=== PATIENT | female | born 1975 | race Caucasian/White ===

== ENCOUNTER 2016-11-23 14:30 | Inpatient (IN) | payer BC, OTHER ==
[~2016-11-23] VITALS: Ht 170.2 cm; Wt 76.4 kg
[~2016-11-23 14:30] MED LIST: BUSP10TA2 PO; HYDR-3025 PO
[2016-11-28] VITALS (23 sets, daily range): BP systolic 99–133; BP diastolic 58–76; PULSE 64–78; RESP 16–19; Ht 170.2 cm; Wt 76.4 kg
--- NOTE | 2016-11-28 00:33 | HP ---
DATE OF ADMISSION: 11/28/2016 HISTORY OF PRESENT ILLNESS: The patient is an approximately 41 years of age female, was originally seen in the office for evaluation of low back pain, pain going to the hips and to both of her lower extremities, left greater than the right. She denied any bladder or bowel dysfunction. She stated that the pain was constant. She has a history of left-sided L4-L5 laminotomy, foraminotomy and micr odiskectomy. The patient was diagnosed with left-sided L5-S1 disk herniation and recurrent L4-L5 ne ural foraminal stenosis. Conservative management was offered ____ of pain management. The patient did not improve. Physical therapy did not improve her condition. Epidural injection to the lumbar spine did not improve her condition. The patient wanted something more definitive to be done. Surg ical intervention was discussed with the patient in the form of left-sided lumbar 5-sacral 1 laminotomy with microdiskectomy, possible left-sided L4-L5 redo laminotomy, foraminotomy and possi ble microdiskectomy. The patient has agreed and wants to proceed. PAST MEDICAL HISTORY: Per chart. SURGICAL HISTORY: History of lumbar 4-5 left-sided laminotomy with foraminotomy with microdiskectom y. SOCIAL HISTORY: Denies use of drugs, alcohol, tobacco. ALLERGIES: PER CHART. MEDICATIONS TAKEN AT HOME: Per chart. FAMILY HISTORY: Unremarkable. REVIEW OF SYSTEMS: Additional 10-point review of systems conducted. Pertinent positives stated in HPI, otherwise negative. PHYSICAL EXAMINATION: GENERAL: The patient in bed, is awake, alert, oriented. Follows commands appropriately. HEENT: Head is atraumatic, normocephalic. Eyes: Sclerae clear, nonicteric. EOMs intact. Pupils equal and reactive. No cyanosis. Mouth: No lesions, no bleeding, no discharge. NECK: Supple. No thyromegaly, no JVD, no accessory muscle use. PULMONARY: No dyspnea, no tachypnea. CARDIOVASCULAR: No JVD. No pedal edema. ABDOMEN: Soft without guarding. PERIPHERAL VASCULAR: No edema, no swelling. NEUROLOGIC: Awake, alert, oriented. Follows commands properly. Cranial nerves intact. Upper extr emity examination is unremarkable. She has good strength in both of her upper extremities. Lower e xtremity examination has a positive leg raising on the left side. Left knee and left ankle reflexes are difficult to obtain. Toes are downgoing on plantar stroke. Decreased sensation over the dorsa l and the lateral aspect of the left foot. DIAGNOSTIC STUDIES: MRI dated 08/12/2016 shows evidence of lumbar disk herniation at level of left L5-S1 with neural foraminal stenosis and L4-L5 with severe postoperative stenosis. Recommendation a t this point is for patient to undergo surgical intervention in the form of left L5-S1 laminotomy wi th foraminotomy and microdiskectomy and possible redo left L4-L5 laminotomy, foraminotomy and possib le microdiskectomy. The procedure was described to the patient in great detail. Complications were explained including infection, permanent nerve damage, bleeding, complications of anesthesia includ ing heart attack, stroke, even . The patient has agreed. Preop was performed. The patient balderrama s been cleared for surgical intervention. She will have surgical intervention in the hospital, ther zulyfter will be admitted to the hospital for further care and management. Dictated By: JETT VILLASENOR for JOCELIN KOHLER/PEREZ Conf#: [id number] DID#: [id number]
[2016-11-28] MEDS ORDERED: morphine 2 MG INJ IV PRN (11:00)
--- NOTE | 2016-11-28 11:11 | HPN ---
Date/Time of Note Date/Time of Note DATE: 11/28/16 TIME: 11:10 Interval H&P Admission Note Pt. seen H&P reviewed: No system changes JETT BARLOW PA-C November 28, 2016 11:11
[2016-11-28] MEDS ORDERED: HYDR-902 PO (11:39)
[2016-11-28] MEDS ORDERED: CYCL-319 PO (11:40)
[2016-11-28] MEDS ORDERED: CEFAZOLIN 1 GM INJ ONE (12:51)
[2016-11-28] MEDS ORDERED: NEOSTIGMINE 3 MG/3 ML SYRINGE ONE (12:51)
[2016-11-28] MEDS ORDERED: ROCURONIUM 50 MG INJ ONE (12:51)
[2016-11-28] MEDS ORDERED: FENTAnyl 50 MCG/ML VIAL ONE (12:51)
[2016-11-28] MEDS ORDERED: PROPOFOL 20 ML ONE (12:51)
[2016-11-28] MEDS ORDERED: MIDAZOLAM 1 MG/ML 2 ML INJ ONE (12:51)
[2016-11-28] MEDS ORDERED: ONDANSETRON 4 MG INJ ONE (12:51)
[2016-11-28] MEDS ORDERED: DEXAMETHASONE 4 MG/ML 1 ML INJ ONE (12:51)
[2016-11-28] MEDS ORDERED: hydrALAzine 20 MG INJ IV PRN (13:00)
[2016-11-28] MEDS ORDERED: MIDAZOLAM 1 MG/ML 2 ML INJ IV PRN (13:00)
[2016-11-28] MEDS ORDERED: TRIMETHOBENZAMIDE 100 MG/ML VIAL IM PRN (13:00)
[2016-11-28] MEDS ORDERED: ONDANSETRON 4 MG INJ IV PRN (13:00)
[2016-11-28] MEDS ORDERED: HYDROmorphONE (0.2 MG/ML) 10ML SYG IV PRN ×2 (13:00)
[2016-11-28] MEDS ORDERED: LABETALOL HCL 20MG INJ IV PRN (13:00)
[2016-11-28] MEDS ORDERED: EPHEDrine SULFATE 50 MG/5 ML SYG IV PRN (13:00)
[2016-11-28] MEDS ORDERED: DIPHENHYDRAMINE 50 MG INJ IV PRN (13:00)
[2016-11-28] MEDS ORDERED: FENTAnyl 50 MCG/ML VIAL IV PRN ×2 (13:00)
[2016-11-28] MEDS ORDERED: MEPERIDINE 25 MG INJ IV PRN (13:00)
[2016-11-28] MEDS ORDERED: CEFAZOLIN 1 GM/50 ML (PMX) 50 ML IVPB SCH (14:00)
[2016-11-28] MEDS ORDERED: LIDOCAINE 0.5%/EPI (MDV) 50 ML INJ ONE (14:43)
[2016-11-28] MEDS ORDERED: THROMBIN 5000 UNIT VIAL ONE ×2 (14:43→14:51)
[2016-11-28] MEDS ORDERED: GELATIN SIZE 100 SPONGE ONE (14:43)
[2016-11-28] MEDS ORDERED: LABETALOL HCL 20MG INJ ONE (14:45)
[2016-11-28] MEDS ORDERED: POLYMYXIN/BACITRACIN 1L IRRIG ONE (14:46)
[2016-11-28] MEDS ORDERED: hydrALAzine 20 MG INJ ONE (14:50)
[2016-11-28] MEDS: HYDROmorphONE (0.2 MG/ML) 10ML SYG IV PRN ×4 (16:08→16:37)
[2016-11-28] MEDS ORDERED: POLYMYXIN/BACITRACIN 1L IRRIG IRR ONE (16:10)
[2016-11-28] MEDS ORDERED: THROMBIN 5000 UNIT VIAL TOP ONE (16:11)
[2016-11-28] MEDS: FENTAnyl 50 MCG/ML VIAL IV PRN ×3 (16:47→17:16)
[2016-11-28] MEDS: HYDROCODONE/APAP (10/325) TAB PO PRN ×2 (18:24→23:35)
[2016-11-28] MEDS: CYCLOBENZAPRINE 10 MG TAB PO PRN (21:19)
[2016-11-28] MEDS: DEXTROSE 5%-LR 1,000 ML IV SCH (22:01)
[2016-11-28] MEDS: ONDANSETRON 4 MG INJ IV PRN (22:01)
[2016-11-28] MEDS: CEFAZOLIN 1 GM/50 ML (PMX) 50 ML IVPB SCH (22:01)
[2016-11-28] MEDS: HYDROmorphONE 1 MG/ML SYG IV PRN (22:39)
[2016-11-29] MEDS: HYDROmorphONE 1 MG/ML SYG IV PRN ×7 (01:27→20:46)
[2016-11-29] MEDS: DEXTROSE 5%-LR 1,000 ML IV SCH ×2 (01:48→09:37)
--- NOTE | 2016-11-29 03:40 | HP ---
DATE OF ADMISSION: 11/28/2016 CHIEF COMPLAINT AND HISTORY OF PRESENT ILLNESS: The patient is a 41-year-old female with history of previous lumbar laminotomy with foraminotomy and microdiskectomy. She had been seen in the past by Dr. Larose for evaluation of lower back pain radiating to both lower extremities. The patient unde rwent MRI in July 2016, which showed lumbar disk herniation at the level of L5-S1 with neural for aminal stenosis in L4-L5 with severe postoperative stenosis. Conservative measures were offered but the patient did not have any relief in her symptoms and; therefore, the decision was made to perfor m L5-S1 laminotomy with foraminotomy and microdiskectomy. The patient denied any chest pain. No re ported shortness of breath, no reported numbness or weakness in lower extremity. Patient did not balderrama ve any bladder or bowel incontinence prior to surgery. No reported recent fever or chills. No rece nt urinary tract or respiratory tract infection. PAST MEDICAL HISTORY: As stated above. PAST SURGICAL HISTORY: As stated above. SOCIAL HISTORY: No smoking, no alcohol. ALLERGIES: NONE. MEDICATIONS: Prior to admission, the patient was on Atkinson as well as Flexeril. FAMILY HISTORY: Noncontributory. PHYSICAL EXAMINATION: GENERAL: The patient is conscious, awake, alert. VITAL SIGNS: Blood pressure 109/76, pulse 70, respirations 17, temperature 98, O2 saturation 100% o n 2 liters nasal cannula. HEENT: Atraumatic, normocephalic. Conjunctivae and lids normal. Oropharynx clear. NECK: No mass, no thyromegaly. CHEST: Fairly clear. CARDIOVASCULAR: S1, S2 normal. No murmur, gallop, or rub. ABDOMEN: Soft, nondistended, nontender. Bowel sounds present. EXTREMITIES: No leg edema. Pedal pulses palpable. SKIN: Without acute rash. NEUROLOGIC: The patient is awake, alert with no gross focal deficit, although exam was limited alberto use of recent surgery. IMPRESSION: L5-S1 lumbar disk herniation with neural foraminal stenosis at L4-5 with severe postope rative stenosis, status post surgery. PLAN: Patient admitted on medical floor. Patient will be started on clear liquid diet, which will be advanced as tolerated. The patient will be given Atkinson for mild to moderate pain as well as IV m orphine for severe pain. SCD will be used for DVT prophylaxis. Further postoperative care as per Tahir Larose. Plan of care discussed with patient's family. We will continue to follow her. Will do followup CBC and CMP tomorrow. Dictated By: MELITA GONZALEZ/PEREZ Conf#: [id number] DID#: [id number]
[2016-11-29 04:00] VITALS: BP 108/63; PULSE 66; RESP 18
[2016-11-29 04:55] LABS: ADD SCAN DIFF NO
[2016-11-29 04:58] LABS: BASOPHILS % 0.1 % (0.0-2.0); HEMOGLOBIN 11.7 g/dl (12.0-16.0); LYMPHOCYTES # 1.1 10^3/ul (0.8-2.9); MEAN CORPUSCULAR HEMOGLOBIN 30.5 pg (29.0-33.0); MEAN CORPUSCULAR HGB CONC 33.4 g/dl (32.0-37.0); MEAN CORPUSCULAR VOLUME 91.4 fl (82.0-101.0); MEAN PLATELET VOLUME 10.3 fl (7.4-10.4); MONOCYTE # 0.5 10^3/ul (0.3-0.9); MONOCYTES % 3.3 % (0.0-11.0); NEUTROPHIL # 13.4 10^3/ul (1.6-7.5); NEUTROPHILS % 89.1 % (39.0-77.0); PLATELET COUNT 226 10^3/UL (140-415); RED BLOOD COUNT 3.83 10^6/ul (4.20-5.40); RED CELL DISTRIBUTION WIDTH 12.8 % (11.5-14.5); WHITE BLOOD COUNT 15.1 10^3/ul (4.8-10.8)
[2016-11-29 05:31] LABS: ALBUMIN 3.2 g/dl (3.3-4.9)
[2016-11-29 05:34] LABS: ALBUMIN/GLOBULIN RATIO 1.14; BILIRUBIN,INDIRECT 0.4 mg/dl (0-1.1); BILIRUBIN,TOTAL 0.4 mg/dl (0.2-1.3); CREATININE 0.69 mg/dl (0.44-1.00)
[2016-11-29 05:35] LABS: CALCIUM 8.6 mg/dl (8.4-10.2)
[2016-11-29] MEDS: CEFAZOLIN 1 GM/50 ML (PMX) 50 ML IVPB SCH ×2 (06:15→13:16)
[2016-11-29] MEDS: HYDROCODONE/APAP (10/325) TAB PO PRN ×3 (06:16→21:34)
[2016-11-29 07:42] VITALS: BP 107/63; RESP 19
--- NOTE | 2016-11-29 08:56 | RADRPT ---
PROCEDURE: Lumbar spine x-ray CLINICAL INDICATION: Lumbar spine surgery TECHNIQUE: Single intraoperative lateral view of the lumbar spine is available for review COMPARISON: None available FINDINGS: A surgical probe is identified at the L5-S1 disk space disk. Single lateral x-ray of the lumbar spin e was performed intraoperatively for localization during the procedure in progress. IMPRESSION: 1. Intraoperative x-ray for localization during lumbar spinal surgical procedure. RPTAT: KK .Buddy Garcia MD, Date Time Electronically viewed and signed by .Buddy Garcia MD, on 11/29/2016 08:56 .B/
--- NOTE | 2016-11-29 12:03 | PN ---
DATE: 11/29/2016 SUBJECTIVE: Follow up on recent surgery for L5 to S1 disk herniation. The patient denies any chest pain or shortness of breath. No new neurological symptoms. Rowe catheter is draining clear urine . OBJECTIVE: VITAL SIGNS: Stable. Temperature 98, pulse 70, respirations 19, blood pressure 107/63, O2 saturati on 98% on room air. HEENT: No eye discharge or redness. NECK: No mass. CHEST: Fairly clear. CARDIOVASCULAR: S1, S2 normal. No murmur. ABDOMEN: Soft, nondistended, nontender. EXTREMITIES: No leg edema. NEUROLOGIC: The patient is awake, alert, fairly oriented, with no gross focal deficit. LABORATORY DATA: WBC 15.1, hemoglobin 11.7, platelets 226. Sodium 136, potassium 4, BUN 9, creatin ine 0.6. Liver enzymes unremarkable. IMPRESSION: L5 to S1 lumbar disk herniation, status post surgery. Continue current postop care. C ontinue perioperative IV antibiotic as per protocol. We will add senna. Dictated By: MELITA GONZALEZ/PEREZ Conf#: [id number] DID#: [id number]
--- NOTE | 2016-11-29 14:47 | PN ---
Date/Time of Note Date/Time of Note DATE: 11/29/16 TIME: 14:46 Assessment/Plan Lines/Catheters IV Catheter Type (from [facility]): Peripheral IV Rowe in Place (from [facility]): Yes Assessment/Plan Chief Complaint/Hosp Course DOING BETTER AWAITING DC TO REHAB CONT PT AND OT WOUND OK Problems: Exam/Review of Systems Vital Signs Vitals Vital Signs Date Time Temp Pulse Resp B/P Pulse Ox O2 Delivery O2 Flow Rate FiO2 11/29/16 07:42 98.0 70 19 107/63 98 11/29/16 04:00 Room Air 11/28/16 20:29 2.0 Intake and Output 11/28/16 11/28/16 11/29/16 15:00 23:00 07:00 Intake Total 1650 ml 935 ml Output Total 195 ml 1250 ml Balance 1455 ml -315 ml Results Result Diagram: 11/29/16 0415 11/29/16 0415 JOCELIN CONNELL MD November 29, 2016 14:47
[2016-11-29] MEDS: ONDANSETRON 4 MG INJ IV PRN (18:13)
[2016-11-29 19:00] VITALS: BP 97/58; RESP 18
[2016-11-29] MEDS: SENNA/DOCUSATE NA (8.6MG/50MG) TAB PO SCH (20:46)
[2016-11-29] MEDS ORDERED: PANTOPRAZOLE (EC) 40 MG TAB PO ONE (21:30)
[2016-11-29] MEDS: AL HYDROX/MG HYDROX/SIMETH 30 ML CUP PO PRN (22:19)
[2016-11-30] MEDS: HYDROmorphONE 1 MG/ML SYG IV PRN ×6 (00:35→20:48)
[2016-11-30] MEDS: HYDROCODONE/APAP (10/325) TAB PO PRN ×5 (02:04→21:52)
[2016-11-30 02:21] VITALS: BP 112/59; RESP 18
[2016-11-30] MEDS: DEXTROSE 5%-LR 1,000 ML IV SCH ×2 (06:00→20:42)
[2016-11-30] MEDS: PANTOPRAZOLE (EC) 40 MG TAB PO SCH (06:01)
[2016-11-30 07:49] VITALS: BP 98/59; RESP 19
[2016-11-30] MEDS: SENNA/DOCUSATE NA (8.6MG/50MG) TAB PO SCH ×2 (07:51→20:48)
[2016-11-30] MEDS: CYCLOBENZAPRINE 10 MG TAB PO PRN ×2 (09:04→18:16)
--- NOTE | 2016-11-30 16:17 | PN ---
Date/Time of Note Date/Time of Note DATE: 11/30/16 TIME: 16:13 Assessment/Plan VTE Prophylaxis VTE Prophylaxis Intervention: SCD's Lines/Catheters IV Catheter Type (from Nrsg): Peripheral IV Urinary Cath still in place: Yes Reason Cath still needed: urinary retention Assessment/Plan Assessment/Plan - L5 to S1 lumbar disk herniation, status post surgery. Continue current postop care. Continue perioperative IV antibiotic as per protocol. Continue physical therapy. Further recommendations based on clinical course. Plan of care discussed with Dr. Abraham Subjective 24 Hr Interval Summary Free Text/Dictation Patient pain is controlled patient was able to ambulate in the hallway with physical therapy, currently is tied ,back to bed. Exam/Review of Systems Vital Signs Vitals Vital Signs Date Time Temp Pulse Resp B/P Pulse Ox O2 Delivery O2 Flow Rate FiO2 11/30/16 07:49 98.0 60 19 98/59 98 11/29/16 04:00 Room Air 11/28/16 20:29 2.0 Intake and Output 11/29/16 11/29/16 11/30/16 15:00 23:00 07:00 Intake Total 50 ml 580 ml 600 ml Output Total 2130 ml 1215 ml Balance 50 ml -1550 ml -615 ml Exam Constitutional: alert, oriented Psych: no complaints Head: atraumatic, normocephalic Eyes: nl conjunctiva ENMT: nl external ears & nose Neck: non-tender, supple Respiratory: clear to auscultation, normal air movement Cardiovascular: nl pulses, regular rate and rhythm Gastrointestinal: non-tender, soft Genitourinary - Female: nl adnexae Musculoskeletal: nl extremities to inspection, other (Status post surgery with lower back dressing dry clean and intact with a drain) Extremities: normal pulses Neurological: COMPUTER ANALYST SUPERVISOR II-XII intact Results Result Diagram: 11/29/16 0415 11/29/16 0415 Medications Medications Current Medications Acetaminophen/ Hydrocodone Bitart ([place] (10325)) 1 tab Q4H PRN PO PAIN Last administered on 11/30/16 11:51; Admin Dose 1 TAB; Start 11/28/16 at 11:00 Ondansetron HCl 4 mg 4 mg Q6H PRN IV NAUSEA AND/OR VOMITING Last administered on 11/29/16 18:13; Admin Dose 4 MG; Start 11/28/16 at 11:00 Dextrose/Lactated Ringer's (D5-Lr) 1,000 ml @ 70 mls/hr [id number] IV Last administered on 11/30/16 06:00; Admin Dose 70 MLS/HR; Start 11/28/16 at 11:30 Cyclobenzaprine HCl (Flexeril) 10 mg BID PRN PO MUSCLE SPASMS Last administered on 11/30/16 09:04; Admin Dose 10 MG; Start 11/28/16 at 19:30 Hydromorphone HCl (Dilaudid) 1 mg Q2H PRN IV PAIN Last administered on 15:02; Admin Dose 1 MG; Start 11/28/16 at 22:15 Senna/Docusate Sodium (Senokot-S) 2 tab BID PO Last administered on 11/30/16 07 :51; Admin Dose 2 TAB; Start 11/29/16 at 21:00 Pantoprazole (Protonix Tab) 40 mg DAILY@06 PO Last administered on 11/30/16 06: 01; Admin Dose 40 MG; Start 11/30/16 at 06:00 Al Hydrox/Mg Hydrox/Simethicone (Mag-Al Plus) 30 ml Q4H PRN PO GASTROINTESTINAL UPSET Last administered on 11/29/16 22:19; Admin Dose 30 ML; Start 11/29/16 at 21:30 MICHELLE HOLDER November 30, 2016 16:17
[2016-11-30 19:00] VITALS: BP 110/58; RESP 19
[2016-11-30] MEDS: AL HYDROX/MG HYDROX/SIMETH 30 ML CUP PO PRN (22:51)
[2016-12-01] MEDS: HYDROmorphONE 1 MG/ML SYG IV PRN ×3 (00:07→15:19)
[2016-12-01] MEDS: HYDROCODONE/APAP (10/325) TAB PO PRN ×3 (01:58→12:40)
[2016-12-01 05:05] LABS: ADD SCAN DIFF NO
[2016-12-01 05:08] LABS: BASOPHILS % 0.4 % (0.0-2.0); EOSINOPHILS # 0.1 10^3/ul (0.0-0.5); EOSINOPHILS % 1.1 % (0.0-7.0); HEMATOCRIT 36.2 % (37.0-47.0); HEMOGLOBIN 12.3 g/dl (12.0-16.0); LYMPHOCYTES # 2.2 10^3/ul (0.8-2.9); LYMPHOCYTES % 30.1 % (15.0-51.0); MEAN CORPUSCULAR HEMOGLOBIN 31.5 pg (29.0-33.0); MEAN CORPUSCULAR VOLUME 92.8 fl (82.0-101.0); MEAN PLATELET VOLUME 10.6 fl (7.4-10.4); MONOCYTE # 0.6 10^3/ul (0.3-0.9); NEUTROPHIL # 4.3 10^3/ul (1.6-7.5); NEUTROPHILS % 60.1 % (39.0-77.0); PLATELET COUNT 211 10^3/UL (140-415); RED CELL DISTRIBUTION WIDTH 12.5 % (11.5-14.5); WHITE BLOOD COUNT 7.2 10^3/ul (4.8-10.8)
[2016-12-01 05:22] LABS: CALCIUM 8.8 mg/dl (8.4-10.2); CREATININE 0.76 mg/dl (0.44-1.00); POTASSIUM 4.1 mmol/L (3.5-5.1)
[2016-12-01] MEDS: CYCLOBENZAPRINE 10 MG TAB PO PRN ×2 (06:46→16:50)
[2016-12-01] MEDS: PANTOPRAZOLE (EC) 40 MG TAB PO SCH (06:46)
[2016-12-01] MEDS: DEXTROSE 5%-LR 1,000 ML IV SCH (06:47)
[2016-12-01 08:15] VITALS: BP 111/68; RESP 18
[2016-12-01] MEDS: SENNA/DOCUSATE NA (8.6MG/50MG) TAB PO SCH (08:54)
--- NOTE | 2016-12-01 11:40 | PN ---
Date/Time of Note Date/Time of Note DATE: 12/01/16 TIME: 11:31 Assessment/Plan VTE Prophylaxis VTE Prophylaxis Intervention: other Lines/Catheters IV Catheter Type (from Nrsg): Saline Lock Urinary Cath still in place: Yes Reason Cath still needed: urinary retention Assessment/Plan Assessment/Plan - L5 to S1 lumbar disk herniation, status post surgery. - per neurosurgery - Continue current postop care. - pain control - am labs - Continue physical therapy. Further recommendations based on clinical course. Plan of care discussed with Dr. Abraham Subjective 24 Hr Interval Summary Free Text/Dictation Patient pain is controlled, fc noted, afebrile, patient was able to ambulate in the hallway with physical therapy - dw staff Eyes: no complaints ENT: no complaints Respiratory: no complaints Genitourinary: no complaints Musculoskeletal: neck pain Skin: no complaints Neurologic: no complaints Psychological: no complaints Immunologic: no complaints Exam/Review of Systems Vital Signs Vitals Vital Signs Date Time Temp Pulse Resp B/P Pulse Ox O2 Delivery O2 Flow Rate FiO2 12/01/16 08:15 98.1 69 18 111/68 97 11/29/16 04:00 Room Air 11/28/16 20:29 2.0 Intake and Output 11/30/16 11/30/16 12/01/16 15:00 23:00 07:00 Intake Total 1300 ml 1040 ml Output Total 2005 ml 1805 ml Balance -705 ml -765 ml Exam Constitutional: well developed Psych: nl mood/affect Eyes: EOMI ENMT: nl external ears & nose Neck: other Respiratory: clear to auscultation Cardiovascular: nl pulses Gastrointestinal: non-tender, other (fc- yellow urine), soft Musculoskeletal: nl extremities to inspection Extremities: normal pulses Skin: other Lymph: nontender Results Result Diagram: 12/01/16 0420 12/01/16 0420 Results 24 hrs Laboratory Tests Test 12/01/16 04:20 White Blood Count 7.2 # Red Blood Count 3.90 L Hemoglobin 12.3 Hematocrit 36.2 L Mean Corpuscular Volume 92.8 Mean Corpuscular Hemoglobin 31.5 Mean Corpuscular Hemoglobin Concent 34.0 Red Cell Distribution Width 12.5 Platelet Count 211 Mean Platelet Volume 10.6 H Neutrophils % 60.1 Lymphocytes % 30.1 Monocytes % 8.0 Eosinophils % 1.1 Basophils % 0.4 Nucleated Red Blood Cells % 0.0 Neutrophils # 4.3 Lymphocytes # 2.2 Monocytes # 0.6 Eosinophils # 0.1 Basophils # 0.0 Nucleated Red Blood Cells # 0.0 Sodium Level 134 L Potassium Level 4.1 Chloride Level 99 Carbon Dioxide Level 30 Anion Gap 9 Blood Urea Nitrogen 9 Creatinine 0.76 Glucose Level 96 Calcium Level 8.8 Medications Medications Current Medications Acetaminophen/ Hydrocodone Bitart ([place] (10/325)) 1 tab Q4H PRN PO PAIN Last administered on 12/01/16 08:01; Admin Dose 1 TAB; Start 11/28/16 at 11:00 Ondansetron HCl 4 mg 4 mg Q6H PRN IV NAUSEA AND/OR VOMITING Last administered on 11/29/16 18:13; Admin Dose 4 MG; Start 11/28/16 at 11:00 Dextrose/Lactated Ringer's (D5-Lr) 1,000 ml @ 70 mls/hr [id number] IV Last administered on 12/01/16 06:47; Admin Dose 70 MLS/HR; Start 11/28/16 at 11:30 Cyclobenzaprine HCl (Flexeril) 10 mg BID PRN PO MUSCLE SPASMS Last administered on 12/01/16 06:46; Admin Dose 10 MG; Start 11/28/16 at 19:30 Hydromorphone HCl (Dilaudid) 1 mg Q2H PRN IV PAIN Last administered on 04:34; Admin Dose 1 MG; Start 11/28/16 at 22:15 Senna/Docusate Sodium (Senokot-S) 2 tab BID PO Last administered on 12/01/16 08 :54; Admin Dose 2 TAB; Start 11/29/16 at 21:00 Pantoprazole (Protonix Tab) 40 mg DAILY@06 PO Last administered on 12/01/16 06: 46; Admin Dose 40 MG; Start 11/30/16 at 06:00 Al Hydrox/Mg Hydrox/Simethicone (Mag-Al Plus) 30 ml Q4H PRN PO GASTROINTESTINAL UPSET Last administered on 11/30/16 22:51; Admin Dose 30 ML; Start 11/29/16 at 21:30 LA CASH December 01, 2016 11:40
--- NOTE | 2016-12-01 12:25 | PN ---
Date/Time of Note Date/Time of Note DATE: 12/01/16 TIME: 12:25 Assessment/Plan Lines/Catheters IV C[facility] Type (from [facility]): Saline Lock Rowe in Place (from Nrs): Yes Assessment/Plan Chief Complaint/Hosp Course DOING BETTER AWAITING DC TO REHAB CONT PT AND OT WOUND OK Problems: Assessment/Plan doing better alert follows moves all dc home Exam/Review of Systems Vital Signs Vitals Vital Signs Date Time Temp Pulse Resp B/P Pulse Ox O2 Delivery O2 Flow Rate FiO2 12/01/16 08:15 98.1 69 18 111/68 97 11/29/16 04:00 Room Air 11/28/16 20:29 2.0 Intake and Output 11/30/16 11/30/16 12/01/16 15:00 23:00 07:00 Intake Total 1300 ml 1040 ml Output Total 2005 ml 1805 ml Balance -705 ml -765 ml Results Result Diagram: 12/01/16 0420 12/01/16 0420 JOCELIN CONNELL MD December 01, 2016 12:25
--- NOTE | 2016-12-01 13:14 | PDOCDIS ---
Discharge Instructions CONDITION Patient Condition: Stable HOME CARE INSTRUCTIONS: Diet Instructions: Regular ACTIVITY: Activity Restrictions: Slowly Increase Activity Rest between Activity Avoid heavy lifting No Sexual Activity Do not Drive Do not operate Machinery Do not operate Power Tool Avoid Heavy Housework Keep Limb Elevated Weight Bearing Bathing Restrictions: Shower FOLLOW UP/APPOINTMENTS Appointments Fu with Primary MD X 1 WEEK Fu WITH neurosx as recommended. Call 911 or got to the nearest hospital if symptoms get worse. dc instruction dw staff/patient. LA CASH December 01, 2016 13:14
[2016-12-01] MEDS ORDERED: HYDR-906 PO (13:16)
[2016-12-01] MEDS ORDERED: DOCU-144 PO (13:16)
[2016-12-01] MEDS ORDERED: PANT40TA4 PO (13:16)
--- NOTE | 2016-12-01 13:16 | DS ---
Date/Time of Note Date/Time of Note DATE: 12/01/16 TIME: 13:16 Discharge Summary Admission/Discharge Info Admit Date/Time November 28, 2016 at 11:14 Discharge Date/Time Hospital Course DOING BETTER AWAITING DC TO REHAB CONT PT AND OT WOUND OK Home Meds Active Scripts Hydrocodone/Acetaminophen ([place] 5-325 Tablet) 1 Each Tablet, 1 EACH PO Q6 for PAIN LEVEL 6-10, #24 TAB Prov:LA CASH 12/01/16 Docusate Sodium* (Colace*) 100 Mg Capsule, 100 MG PO BID, #30 CAP Prov:LA CASH 12/01/16 Pantoprazole* (Pantoprazole*) 40 Mg Tablet.dr, 40 MG PO DAILY@06 for 30 Days Prov:LA CASH 12/01/16 Reported Medications Cyclobenzaprine Hcl* (Cyclobenzaprine Hcl*) 10 Mg Tablet, 10 MG PO BID Y for MUSCLE SPASMS, #90 TAB 11/28/16 Hydrocodone/Acetaminophen ([place] 10-325 Tablet) 1 Each Tablet, 1 EACH PO TID Y for PAIN, TAB 11/28/16 Discontinued Reported Medications Buspirone Hcl* (Buspirone Hcl*) 10 Mg Tab, 10 MG PO BID, TAB 08/27/14 Hydrocodone Bit-Acetaminophen* (Vicodin* ES) 7.5-300 Mg Tablet, 1 EACH PO Q4H Y for PAIN, TAB 08/27/14 Pending Labs Laboratory Tests Test 12/01/16 04:20 White Blood Count 7.210^3/ul (4.8-10.8) Red Blood Count 3.9010^6/ul (4.20-5.40) Hemoglobin 12.3g/dl (12.0-16.0) Hematocrit 36.2% (37.0-47.0) Mean Corpuscular Volume 92.8fl (82.0-101.0) Mean Corpuscular Hemoglobin 31.5pg (29.0-33.0) Mean Corpuscular Hemoglobin Concent 34.0g/dl (32.0-37.0) Red Cell Distribution Width 12.5% (11.5-14.5) Platelet Count 30539^3/UL (140-415) Mean Platelet Volume 10.6fl (7.4-10.4) Neutrophils % 60.1% (39.0-77.0) Lymphocytes % 30.1% (15.0-51.0) Monocytes % 8.0% (0.0-11.0) Eosinophils % 1.1% (0.0-7.0) Basophils % 0.4% (0.0-2.0) Nucleated Red Blood Cells % 0.0/100WBC (0.0-0.0) Neutrophils # 4.310^3/ul (1.6-7.5) Lymphocytes # 2.210^3/ul (0.8-2.9) Monocytes # 0.610^3/ul (0.3-0.9) Eosinophils # 0.110^3/ul (0.0-0.5) Basophils # 0.010^3/ul (0.0-0.1) Nucleated Red Blood Cells # 0.010^3/ul (0.0-0.0) Sodium Level 134mmol/L (135-144) Potassium Level 4.1mmol/L (3.5-5.1) Chloride Level 99mmol/L (97-110) Carbon Dioxide Level 30mmol/L (21-31) Anion Gap 9 (8-16) Blood Urea Nitrogen 9mg/dl (7-20) Creatinine 0.76mg/dl (0.44-1.00) Glucose Level 96mg/dl (70-220) Calcium Level 8.8mg/dl (8.4-10.2) LA CASH December 01, 2016 13:16
--- NOTE | 2016-12-04 10:53 | OPR ---
DATE OF OPERATION: 11/28/2016 PREOPERATIVE DIAGNOSIS: Left-sided L4-L5 and L5-S1 foraminal stenosis with disk herniation and lumb ar radiculopathy. POSTOPERATIVE DIAGNOSIS: Left-sided L4-L5 and L5-S1 foraminal stenosis with disk herniation and lum bar radiculopathy. PROCEDURE DURING HOSPITALIZATION: 1. Left-sided L4-L5 laminotomy, foraminotomy, medial facetectomy, a redo operation, CPT 07751. 2. Left-sided L5-S1 laminotomy, foraminotomy, medial fasciotomy, parapedicular approach, CPT 73112. SURGEON: Jocelin Larose MD OPERATOR MAINTAINER: JACKLYN Lofton COMPLICATIONS: None. ANESTHESIA: General endotracheal. ESTIMATED BLOOD LOSS: Less than 100 mL. NEEDLE AND SPONGE COUNTS: Correct. SPECIMENS: Multiple fragments of the lamina were sent to pathology. INDICATIONS FOR THE OPERATION: The patient Bruno is well known to me. She is 41. HISTORY OF PRESENT ILLNESS: Patient is admitted on 11/28/2016 to undergo the above operation. Risk s and benefits of the operation including anesthesia, infection, bleeding, permanent neurological in jury and were explained. The patient agreed to proceed with the operation and signed the cons ent. PROCEDURE IN DETAIL: The patient was placed in supine position. After adequate general anesthesia was obtained, the patient was turned prone on vertical bolsters. Lumbar region was shaved, prepped and draped in normal sterile fashion. The old incision at the L4-L5 level was identified. The bakari ent has had a surgery in the back and the lumbar spine where they did a left-sided L4-L5 laminotomy and apparently the patient has had recurrent disk herniation there. The area was irrigated. The incision was made with a #10 blade, was carried to the L4-L5, L5-S1 int erspace. Utilizing operative microscope magnification, the inferior aspect of L4, superior aspect o f L5 was drilled away and was able to identify the nerve root of L4, nerve root of L5 and there was severe foraminal stenosis. Decompression of the L4 and L5 nerve root was done. Following this, att ention was paid to the L5-S1, where the inferior aspect of L5, superior aspect of S1 lamina was dril led away all the way to the ligamentum flavum which was detached and following that, the nerve root of L5 and S1 was distally followed into the neural foramen. There were disk bulges there. The disk bulges were bipolar. I did not do a complete formal diskectomy, as there no severe compression of the nerve there. Severe stenosis was distally in the neural foramen at L4-L5 and L5-S1. The area w as irrigated with bacitracin saline solution and spinal monitoring showed complete normal signals at the level of L4, L5, and S1. Closure the wound was done with #1 Vicryl for the lumbodorsal fascia after a drain was placed in the subcutaneous tissues exiting from the skin through a separate stab incision and secured to the skin with sutures. Closure of the lumbodorsal fascia with #1 Vicryl, 2-0 and 3-0 Vicryl for subcutaneou s tissue and dermis and Steri-Strips for the skin. Patient tolerated the procedure well. Dictated By: JOCELIN CURRY/PEREZ Conf#: [id number] DID#: [id number]
== END 2016-12-01 17:15 | disposition home or self-care (01) | DRG 517 ==
LOC: REC 11-28 11:14 → MS1 11-28 17:15
PROVIDERS: ADMIT Internal Medicine; ATTEND Internal Medicine
PROC: 4A1104G Monitoring of Peripheral Nervous Electrical Activity, Intraoperative, Open Approach (ICD-10-PCS; 2016-11-28)
PROC: 01NB0ZZ Release Lumbar Nerve, Open Approach (ICD-10-PCS; principal; 2016-11-28 13:30)
DX: M48.06 Spinal stenosis, lumbar region (principal); M51.27 Other intervertebral disc displacement, lumbosacral region; M48.07 Spinal stenosis, lumbosacral region; Z98.890 Other specified postprocedural states
CPT/HCPCS: 72100; 80048; 80053; 84703; 85025; 86850; 86900; 86901; 87086; 88304; 97116; 97162; 97530; J0360; J0690; J1100; J1170; J1200; J2175; J2250; J2270; J2405; J2710; J3010; J7121